=== PATIENT | male | born 1975 | race Caucasian/White ===

== ENCOUNTER 2019-02-18 08:39 | Emergency (ER) | payer MEDICAID ==
[~2019-02-18] VITALS: Ht 172.7 cm; Wt 84.0 kg
[2019-02-18 09:02] VITALS: Ht 172.7 cm; Wt 84.0 kg
[2019-02-18 10:19] LABS: microscopic required? NO
[2019-02-18 10:25] LABS: UA SPECIFIC GRAVITY >=1.030 (1.005-1.035); urine erythrocyte NEGATIVE (NEGATIVE)
[2019-02-18 10:53] LABS: BASOPHIL % 0.1 % (0-2); PLATELET COUNT 225 x10^3mcL (130-400); RED CELL DISTRIBUTION WIDTH 13.1 % (11.5-14.5)
[2019-02-18 11:07] LABS: CALCIUM 8.6 mg/dL (8.5-10.1); CARBON DIOXIDE 24.3 mmol/L (21-32); CHLORIDE SERUM 106 mmol/L (98-107); CREATININE SERUM 1.1 mg/dL (0.7-1.3); GFR1 > 60 mL/min; GLUCOSE SERUM 134 mg/dL (74-106); POTASSIUM SERUM 4.3 mmol/L (3.5-5.1); SODIUM SERUM 143 mmol/L (136-145)
[2019-02-18 11:11] LABS: ALKALINE PHOSPHATASE 64 U/L (46-116); ALT/SGPT 57 U/L (16-63); AST/SGOT 26 U/L (15-37); BILIRUBIN TOTAL 1.2 mg/dL (0.20-1.00); CHOLESTEROL 171 mg/dL (<200); CHOLESTEROL/HDL RATIO 3.8; HDL CHOLESTEROL 45 mg/dL (40-60); LIPASE 85 IU/L (73-393); TRIGLYCERIDES 59 mg/dL (<150)
[2019-02-18 11:30] LABS: FREE T4 1.24 ng/dL (0.76-1.46); FREE THYROXINE INDEX 3.1 ug/dL (1.4-4.5); T4(THYROXINE) 9.2 ug/dL (4.7-13.3)
[2019-02-18 12:08] LABS: T3 TOTAL 0.99 ng/mL
[2019-02-18 14:19] VITALS: BP 128/74
== END 2019-02-18 14:19 | disposition home or self-care (01) ==
LOC: ED 08:39
PROVIDERS: Specialist
DX: N13.2 Hydronephrosis with renal and ureteral calculous obstruction (principal); D72.829 Elevated white blood cell count, unspecified; R11.10 Vomiting, unspecified
CPT/HCPCS: 84439; J1885; J2405; J7030